=== PATIENT | female | born 1995 | race Caucasian/White ===

== ENCOUNTER 2018-04-14 09:09 | Emergency (ER) | payer MEDICAID ==
[~2018-04-14] VITALS: Ht 170.2 cm; Wt 54.5 kg
[~2018-04-14 09:09] MED LIST: ATIVAN1 MG PO; CLEOCIN HCL150 MG PO; FERROUS SULFAT325 MG PO; HALDOL5 MG PO; IBUPROFEN600 MG PO; KEFLEX500 MG PO; MOTRIN800 MG PO; PERCOCET 5-3251 TAB PO; PERCOCET 5/3251 TA1 PO; PRENATAL COMPLE1 TAB; PRENATAL COMPLE1 TAB PO; WELLBUTRIN SR150 MG PO
[2018-04-14 09:13] VITALS: Ht 170.2 cm; Wt 54.5 kg
[2018-04-14 09:48] LABS: UDS - AMPHET NEGATIVE QUAL (NEGATIVE); UDS - BARB NEGATIVE QUAL (NEGATIVE); UDS - BENZO NEGATIVE QUAL (NEGATIVE); UDS - COCAINE NEGATIVE QUAL (NEGATIVE); UDS - OPIATE NEGATIVE QUAL (NEGATIVE); UDS - PCP NEGATIVE QUAL (NEGATIVE); UDS - THC POSITIVE QUAL (NEGATIVE)
[2018-04-14 09:54] LABS: BASOPHILS 0.4 % (0-2); EOSINOPHILS 0.7 % (0-7); HEMATOCRIT 35.4 % (36.0-48.0); HEMOGLOBIN 12.2 g/dL (12-16); IMMATURE GRANULOCYTES 0.1 % (0-5); LYMPHOCYTES 26.7 % (15-50); MCH 31.9 pg (26.0-34.0); MCHC 34.5 g/dL (31.0-37.0); MCV 92.7 fL (80.0-100.0); MONOCYTES 6.5 % (2-11); NEUTROPHILS 65.6 % (40-80); RBC 3.82 10x6/uL (4.00-5.40); RDW 13.2 % (11.5-14.5); WBC 7.2 10x3/uL (4.8-10.8)
[2018-04-14 10:05] LABS: PLATELET COUNT 159 10x3/uL (130-400)
[2018-04-14 10:13] LABS: ALBUMIN 3.5 g/dL (3.4-5.0); ALKALINE PHOSPHATASE 41 U/L (46-116); ALT (SGPT) 30 U/L (10-68); CALC OSMOLALITY 281 mosm/kg (275-300); CALCIUM 8.7 mg/dL (8.5-10.1); CARBON DIOXIDE 25.9 mmol/L (21.0-32.0); CHLORIDE - SERUM 106 mmol/L (98-107); CREATININE - SERUM 0.5 mg/dL (0.6-1.3); GLUCOSE 87 mg/dL (74-106); POTASSIUM - SERUM 3.5 mmol/L (3.5-5.1); PROTEIN - SERUM 6.5 g/dL (6.4-8.2); SODIUM 141 mmol/L (136-145); UREA NITROGEN 17 mg/dL (7-18); eGFR NON AFRICAN AMERICAN > 90 mL/min (90-120)
[2018-04-14 11:08] LABS: APPEARANCE HAZY (CLEAR); BACTERIA MODERATE /hpf (NONE SEEN); BILIRUBIN NEGATIVE (NEGATIVE); COLOR STRAW (YELLOW); GLUCOSE NEGATIVE (NEGATIVE); KETONE NEGATIVE (NEGATIVE); MUCUS <1+ /lpf (NONE SEEN); NITRITE NEGATIVE (NEGATIVE); PROTEIN NEGATIVE (NEGATIVE); SPECIFIC GRAVITY 1.005 (1.005-1.020); UROBILINOGEN NORMAL (NORMAL); WHITE CELLS - URINE 0-5 /hpf (0-5)
[2018-04-14 11:47] VITALS: BP 108/81
== END 2018-04-14 11:47 | disposition left against medical advice (07) ==
LOC: D.ER 09:09
PROVIDERS: Family Medicine
DX: O26.892 Other specified pregnancy related conditions, second trimester (principal); Z3A.17 17 weeks gestation of pregnancy; R42 Dizziness and giddiness; I95.9 Hypotension, unspecified; F13.10 Sedative, hypnotic or anxiolytic abuse, uncomplicated; R55 Syncope and collapse; F17.200 Nicotine dependence, unspecified, uncomplicated

== ENCOUNTER 2018-04-20 09:47 | Emergency (ER) | payer MEDICAID ==
[~2018-04-20] VITALS: Ht 170.2 cm; Wt 54.5 kg
[2018-04-20 10:29] LABS: APPEARANCE CLEAR (CLEAR); BILIRUBIN NEGATIVE (NEGATIVE); COLOR YELLOW (YELLOW); GLUCOSE NEGATIVE (NEGATIVE); KETONE NEGATIVE (NEGATIVE); NITRITE NEGATIVE (NEGATIVE); PROTEIN NEGATIVE (NEGATIVE); UROBILINOGEN NORMAL (NORMAL)
[2018-04-20 10:30] LABS: WHITE CELLS - URINE 0-5 /hpf (0-5)
[2018-04-20 10:31] LABS: RED CELLS - URINE 0-5 /hpf (0-5)
[2018-04-20 10:34] LABS: BACTERIA FEW /hpf (NONE SEEN); MUCUS >1+ /lpf (NONE SEEN)
[2018-04-20 11:04] LABS: BASOPHILS 0.5 % (0-2); EOSINOPHILS 1.3 % (0-7); HEMOGLOBIN 12.6 g/dL (12-16); IMMATURE GRANULOCYTES 0.2 % (0-5); LYMPHOCYTES 38.7 % (15-50); MCH 31.9 pg (26.0-34.0); MCV 91.1 fL (80.0-100.0); MEAN PLATELET VOLUME 10.7 fL (7.4-10.4); MONOCYTES 9.7 % (2-11); NEUTROPHILS 49.6 % (40-80); PLATELET COUNT 182 10x3/uL (130-400); RBC 3.95 10x6/uL (4.00-5.40); RDW 12.8 % (11.5-14.5); WBC 6.4 10x3/uL (4.8-10.8)
[2018-04-20 11:37] LABS: ALBUMIN 3.5 g/dL (3.4-5.0); ALKALINE PHOSPHATASE 44 U/L (46-116); ALT (SGPT) 33 U/L (10-68); BILIRUBIN - TOTAL 0.35 mg/dL (0.2-1.3); CALC OSMOLALITY 276 mosm/kg (275-300); CALCIUM 8.9 mg/dL (8.5-10.1); CARBON DIOXIDE 26.4 mmol/L (21.0-32.0); CHLORIDE - SERUM 105 mmol/L (98-107); CREATININE - SERUM 0.5 mg/dL (0.6-1.3); GLUCOSE 88 mg/dL (74-106); POTASSIUM - SERUM 3.5 mmol/L (3.5-5.1); PROTEIN - SERUM 6.6 g/dL (6.4-8.2); SODIUM 139 mmol/L (136-145); UREA NITROGEN 13 mg/dL (7-18); eGFR NON AFRICAN AMERICAN > 90 mL/min (90-120)
[2018-04-20 11:49] LABS: HCG - QUANTITATIVE (MATERNAL) 425 mIU/mL
[2018-04-20 11:54] VITALS: BP 112/084
[2018-04-21] MEDS ORDERED: KLONOPIN0.5 MG PO (06:33)
[2018-05-20 12:57] VITALS: Ht 170.2 cm; Wt 54.5 kg
== END 2018-04-20 11:55 | disposition home or self-care (01) ==
LOC: D.ER 09:47
PROVIDERS: Family Medicine
DX: O02.1 Missed abortion (principal); F17.200 Nicotine dependence, unspecified, uncomplicated

== ENCOUNTER 2018-04-20 18:21 | Inpatient (IN) | payer MEDICAID ==
[~2018-04-20] VITALS: Ht 170.2 cm; Wt 49.9 kg
[2018-04-20 21:10] LABS: INR 1.12 (0.85-1.17)
[2018-04-20 21:18] LABS: UDS - AMPHET POSITIVE QUAL (NEGATIVE); UDS - BARB NEGATIVE QUAL (NEGATIVE); UDS - BENZO NEGATIVE QUAL (NEGATIVE); UDS - COCAINE NEGATIVE QUAL (NEGATIVE); UDS - OPIATE NEGATIVE QUAL (NEGATIVE); UDS - PCP NEGATIVE QUAL (NEGATIVE); UDS - THC POSITIVE QUAL (NEGATIVE)
[2018-04-20 22:47] VITALS: BP 95/50; BMI 17.2
[2018-04-21] MEDS ORDERED: KLONOPIN0.5 MG PO (06:33)
[2018-04-21 09:38] LABS: BASOPHILS 0.4 % (0-2); EOSINOPHILS 1.4 % (0-7); HEMATOCRIT 34.4 % (36.0-48.0); HEMOGLOBIN 11.8 g/dL (12-16); IMMATURE GRANULOCYTES 0.3 % (0-5); LYMPHOCYTES 29.5 % (15-50); MCH 31.7 pg (26.0-34.0); MCHC 34.3 g/dL (31.0-37.0); MCV 92.5 fL (80.0-100.0); MEAN PLATELET VOLUME 11.2 fL (7.4-10.4); NEUTROPHILS 62.4 % (40-80); PLATELET COUNT 175 10x3/uL (130-400); RBC 3.72 10x6/uL (4.00-5.40); WBC 7.6 10x3/uL (4.8-10.8)
[2018-05-20 12:57] VITALS: Ht 170.2 cm; Wt 49.9 kg
== END 2018-04-21 10:30 | disposition home or self-care (01) | DRG 770 ==
LOC: D.LD 18:21
PROVIDERS: Obstetrics & Gynecology
PROC: 10D17Z9 Manual Extraction of Products of Conception, Retained, Via Natural or Artificial Opening (ICD-10-PCS; principal; 2018-04-21)
DX: O02.1 Missed abortion (principal)

== ENCOUNTER 2018-06-13 21:29 | Emergency (ER) | payer MEDICAID ==
[~2018-06-13] VITALS: Ht 170.2 cm; Wt 45.4 kg
[~2018-06-13 21:29] MED LIST changes: +KLONOPIN0.5 MG PO
[2018-06-13 22:03] VITALS: Ht 170.2 cm; Wt 45.4 kg
[2018-06-13 22:35] VITALS: BP 110/74
[2018-06-13 22:48] LABS: BASOPHILS 0.4 % (0-2); EOSINOPHILS 0.2 % (0-7); HEMATOCRIT 40.8 % (36.0-48.0); HEMOGLOBIN 14.1 g/dL (12-16); IMMATURE GRANULOCYTES 0.3 % (0-5); LYMPHOCYTES 18.3 % (15-50); MCH 31.5 pg (26.0-34.0); MCHC 34.6 g/dL (31.0-37.0); MCV 91.3 fL (80.0-100.0); MEAN PLATELET VOLUME 10.9 fL (7.4-10.4); MONOCYTES 6.6 % (2-11); NEUTROPHILS 74.2 % (40-80); RBC 4.47 10x6/uL (4.00-5.40); RDW 13.1 % (11.5-14.5); WBC 13.3 10x3/uL (4.8-10.8)
[2018-06-13 22:52] LABS: PLATELET COUNT 392 10x3/uL (130-400)
[2018-06-13 22:56] LABS: HCG SERUM NEGATIVE (NEGATIVE)
[2018-06-13 23:04] LABS: APPEARANCE HAZY (CLEAR); BILIRUBIN NEGATIVE (NEGATIVE); COLOR YELLOW (YELLOW); GLUCOSE NEGATIVE (NEGATIVE); KETONE LARGE mg/dL (NEGATIVE); NITRITE NEGATIVE (NEGATIVE); PROTEIN TRACE mg/dL (NEGATIVE); SPECIFIC GRAVITY 1.025 (1.005-1.020); UROBILINOGEN NORMAL (NORMAL)
[2018-06-13 23:06] LABS: BACTERIA FEW /hpf (NONE SEEN); EPITHELIAL CELLS 0-5 /hpf (0-5); MUCUS <1+ /lpf (NONE SEEN); RED CELLS - URINE OCC /hpf (0-5); WHITE CELLS - URINE 0-5 /hpf (0-5)
[2018-06-13 23:09] LABS: CALC OSMOLALITY 287 mosm/kg (275-300); CALCIUM 9.6 mg/dL (8.5-10.1); CARBON DIOXIDE 22.9 mmol/L (21.0-32.0); CHLORIDE - SERUM 103 mmol/L (98-107); CREATININE - SERUM 0.8 mg/dL (0.6-1.3); GLUCOSE 80 mg/dL (74-106); POTASSIUM - SERUM 3.5 mmol/L (3.5-5.1); SODIUM 140 mmol/L (136-145); THYROID STIMULATING HORMONE 1.02 uIU/mL (0.36-3.74); UREA NITROGEN 40 mg/dL (7-18); eGFR NON AFRICAN AMERICAN > 90 mL/min (90-120)
[2018-06-13 23:15] LABS: UDS - AMPHET POSITIVE QUAL (NEGATIVE); UDS - BARB NEGATIVE QUAL (NEGATIVE); UDS - BENZO NEGATIVE QUAL (NEGATIVE); UDS - COCAINE NEGATIVE QUAL (NEGATIVE); UDS - OPIATE NEGATIVE QUAL (NEGATIVE); UDS - PCP NEGATIVE QUAL (NEGATIVE); UDS - THC POSITIVE QUAL (NEGATIVE)
== END 2018-06-13 22:36 | disposition left against medical advice (07) ==
LOC: D.ER 21:29
PROVIDERS: Family Medicine
DX: F15.129 Other stimulant abuse with intoxication, unspecified (principal)

== ENCOUNTER 2018-06-14 09:10 | Emergency (ER) | payer MEDICAID ==
[~2018-06-14] VITALS: Ht 170.2 cm; Wt 45.0 kg
[2018-06-14 09:15] VITALS: BP 109/70; Ht 170.2 cm; Wt 45.0 kg
== END 2018-06-14 10:10 | disposition left against medical advice (07) ==
LOC: D.ER 09:10
DX: F15.129 Other stimulant abuse with intoxication, unspecified (principal); F19.10 Other psychoactive substance abuse, uncomplicated; F17.200 Nicotine dependence, unspecified, uncomplicated

== ENCOUNTER 2018-08-03 17:23 | Emergency (ER) | payer MEDICAID ==
[~2018-08-03] VITALS: Ht 170.2 cm; Wt 45.5 kg
[2018-08-03 17:47] VITALS: Ht 170.2 cm; Wt 45.5 kg
[2018-08-03 19:44] VITALS: BP 104/60
== END 2018-08-03 19:44 | disposition home or self-care (01) ==
LOC: D.ER 17:23
DX: F15.10 Other stimulant abuse, uncomplicated (principal); F17.200 Nicotine dependence, unspecified, uncomplicated

== ENCOUNTER 2018-09-29 17:25 | Emergency (ER) | payer MEDICAID ==
[~2018-09-29] VITALS: Ht 170.2 cm; Wt 59.0 kg
[2018-09-29 17:27] VITALS: BP 129/64; Ht 170.2 cm; Wt 59.0 kg
== END 2018-09-29 19:03 | disposition left against medical advice (07) ==
LOC: D.ER 17:25
DX: G47.00 Insomnia, unspecified (principal)

== ENCOUNTER 2018-11-29 20:16 | Inpatient (IN) | payer MEDICAID ==
[~2018-11-29] VITALS: Ht 170.2 cm; Wt 57.5 kg
--- NOTE | 2018-11-29 11:53 | NUR ---
PT STATED SHE WANTED TO LEAVE AMA, CALLED [place] TO INFORM, ONCE PRESENTED WITH PAPERWORK AND INSTRUCTION PT CHANGED HER MIND STATED "I'LL WAIT UNTIL ITS MORNING "
[2018-11-29 21:20] LABS: BASOPHILS 0.4 % (0-2); EOSINOPHILS 1.1 % (0-7); HEMATOCRIT 36.4 % (36.0-48.0); HEMOGLOBIN 12.5 g/dL (12-16); IMMATURE GRANULOCYTES 0.2 % (0-5); LYMPHOCYTES 21.5 % (15-50); MCH 30.9 pg (26.0-34.0); MCHC 34.3 g/dL (31.0-37.0); MCV 89.9 fL (80.0-100.0); MEAN PLATELET VOLUME 11.3 fL (7.4-10.4); NEUTROPHILS 65.8 % (40-80); RBC 4.05 10x6/uL (4.00-5.40); RDW 13.5 % (11.5-14.5); WBC 9.4 10x3/uL (4.8-10.8)
[2018-11-29 21:21] LABS: PLATELET COUNT 243 10x3/uL (130-400)
[2018-11-29 21:31] LABS: APTT 34.4 SECONDS (22.8-39.4); INR 1.2 (0.85-1.17); PROTIME 14.7 SECONDS (11.6-15.0)
[2018-11-29 21:51] LABS: ALBUMIN 4.1 g/dL (3.4-5.0); ALKALINE PHOSPHATASE 70 U/L (46-116); ALT (SGPT) 31 U/L (10-68); CALC OSMOLALITY 282 mosm/kg (275-300); CALCIUM 9.2 mg/dL (8.5-10.1); CARBON DIOXIDE 20.2 mmol/L (21.0-32.0); CHLORIDE - SERUM 102 mmol/L (98-107); CREATININE - SERUM 0.7 mg/dL (0.6-1.3); GLUCOSE 82 mg/dL (74-106); POTASSIUM - SERUM 3.4 mmol/L (3.5-5.1); PROTEIN - SERUM 7.8 g/dL (6.4-8.2); SODIUM 141 mmol/L (136-145); UREA NITROGEN 22 mg/dL (7-18); eGFR NON AFRICAN AMERICAN > 90 mL/min (90-120)
[2018-11-29 22:12] LABS: CKMB 2.4 U/L (0.0-3.6); CREATINE KINASE 199 UL (21-215)
--- NOTE | 2018-11-29 22:15 | NUR ---
RECIEVED PT TO UNIT FOM ER STAFF.. PT VERY ANXIOUS MOVING AROUND ALOT IN BED, IV IN LEFT FA RUNNING VANC.BREATH [id number] EVEN CELLULITIS TO LFT FOOR V/S WNL CALL LIGHT IN REACH WILL CONT TO MONITOR
[2018-11-29 22:16] LABS: TROPONIN-I < 0.017 ng/mL (0.000-0.060)
--- NOTE | 2018-11-29 22:32 | NUR ---
IV INFILTRATED IN RIGHT UPPER ARM. DIRECT PRESSURE W/DRESSING APPLIED AND IV DISCONTINUED.
--- NOTE | 2018-11-29 22:35 | NUR ---
CALL DR. STONER TO ADVISED PT HAD BEEN ADMITTED AND TO SEE IF HE WANTED TO GIVE HER ANYTHING GOT ANXIETY PER OR DRUG SCREEN HE WOULD NOT BE GIVING ANY PAIN MEDS
[2018-11-29 22:36] VITALS: BP 113/61
[2018-11-29 22:42] LABS: APPEARANCE CLEAR (CLEAR); BILIRUBIN NEGATIVE (NEGATIVE); COLOR YELLOW (YELLOW); GLUCOSE NEGATIVE (NEGATIVE); HCG URINE NEGATIVE (NEGATIVE); KETONE MODERATE mg/dL (NEGATIVE); NITRITE NEGATIVE (NEGATIVE); PROTEIN TRACE mg/dL (NEGATIVE); SPECIFIC GRAVITY 1.025 (1.005-1.020); UROBILINOGEN NORMAL (NORMAL)
[2018-11-29 23:53] LABS: UDS - AMPHET POSITIVE QUAL (NEGATIVE); UDS - BARB NEGATIVE QUAL (NEGATIVE); UDS - BENZO NEGATIVE QUAL (NEGATIVE); UDS - COCAINE NEGATIVE QUAL (NEGATIVE); UDS - OPIATE NEGATIVE QUAL (NEGATIVE); UDS - PCP NEGATIVE QUAL (NEGATIVE); UDS - THC POSITIVE QUAL (NEGATIVE)
[2018-11-30 00:31] VITALS: BP 108/66
[2018-11-30 06:13] LABS: BASOPHILS 0.5 % (0-2); EOSINOPHILS 2.1 % (0-7); HEMATOCRIT 35.6 % (36.0-48.0); HEMOGLOBIN 11.9 g/dL (12-16); IMMATURE GRANULOCYTES 0.2 % (0-5); LYMPHOCYTES 23.6 % (15-50); MCH 30.1 pg (26.0-34.0); MCHC 33.4 g/dL (31.0-37.0); MCV 90.1 fL (80.0-100.0); MONOCYTES 0.5 % (2-11); NEUTROPHILS 73.1 % (40-80); PLATELET COUNT 200 10x3/uL (130-400); RBC 3.95 10x6/uL (4.00-5.40); RDW 13.4 % (11.5-14.5)
[2018-11-30 06:17] VITALS: BP 109/72
[2018-11-30 06:35] LABS: ALBUMIN 3.5 g/dL (3.4-5.0); ALKALINE PHOSPHATASE 68 U/L (46-116); ALT (SGPT) 26 U/L (10-68); BILIRUBIN - TOTAL 1.15 mg/dL (0.2-1.3); CALC OSMOLALITY 279 mosm/kg (275-300); CALCIUM 8.4 mg/dL (8.5-10.1); CARBON DIOXIDE 20.8 mmol/L (21.0-32.0); CHLORIDE - SERUM 105 mmol/L (98-107); CREATININE - SERUM 0.7 mg/dL (0.6-1.3); POTASSIUM - SERUM 3.6 mmol/L (3.5-5.1); PROTEIN - SERUM 6.9 g/dL (6.4-8.2); SODIUM 140 mmol/L (136-145); UREA NITROGEN 20 mg/dL (7-18); eGFR NON AFRICAN AMERICAN > 90 mL/min (90-120)
[2018-11-30 06:36] LABS: GLUCOSE 65 mg/dL (74-106)
[2018-11-30 06:37] LABS: WBC 4.2 10x3/uL (4.8-10.8)
--- NOTE | 2018-11-30 07:55 | NUR ---
PT LAYING IN BED WITH EYES CLOSED, RESPIRATIONS EVEN AND UNALBORED. CALL LIGHT IS IN REACH, WILL CONTINUE TO MONITOR AND FOLLOW PLAN OF CARE.
--- NOTE | 2018-11-30 08:02 | NUR ---
SPOKE WITH FARIDEH FROM [facility], PT IS COURT ORDERED TO LIVE THERE AT THIS TIME AND IF SHE TRIES TO LEAVE AMA WE ARE TO NOTIFY THEM. PT IS CURRENTLY SLEEPING, CALL LIGHT IN REACH. WILL CONTINUE TO MONITOR.
[2018-11-30 08:35] VITALS: BP 102/58
--- NOTE | 2018-11-30 09:45 | NUR ---
IV IN LEFT FA INFILTRATED, PT REFUSES TO LET ME START A NEW ONE AT THIS TIME. CALL LIGHT IN REACH, WILL CONTINUE TO MONITOR.
--- NOTE | 2018-11-30 11:05 | NUR ---
RESTING QUIETLY AT PRESENT. WILL CONTINUE WITH POC.
[2018-11-30 11:36] VITALS: BP 99/49
[2018-11-30 15:51] VITALS: BP 102/61
[2018-11-30 21:11] VITALS: BP 91/43
[2018-12-01 00:15] VITALS: BP 87/45
--- NOTE | 2018-12-01 01:55 | NUR ---
RESUMING CARE. PT LAYING IN BED EYES CLOSED IV IN LFT INFILTRATED ON RA NO C/O PAIN OR DISTRESS AT THIS TIME WILL CONT TO MONITOR
[2018-12-01 04:37] VITALS: Ht 170.2 cm; Wt 57.5 kg
[2018-12-01 05:52] VITALS: BP 91/40
[2018-12-01 05:52] LABS: BASOPHILS 0.4 % (0-2); EOSINOPHILS 2.5 % (0-7); HEMATOCRIT 34.3 % (36.0-48.0); HEMOGLOBIN 11.4 g/dL (12-16); IMMATURE GRANULOCYTES 0.2 % (0-5); LYMPHOCYTES 14.8 % (15-50); MCH 30.6 pg (26.0-34.0); MCHC 33.2 g/dL (31.0-37.0); MEAN PLATELET VOLUME 11.6 fL (7.4-10.4); NEUTROPHILS 79.1 % (40-80); PLATELET COUNT 174 10x3/uL (130-400); RBC 3.73 10x6/uL (4.00-5.40); RDW 13.6 % (11.5-14.5)
[2018-12-01 06:14] LABS: CALC OSMOLALITY 282 mosm/kg (275-300); CALCIUM 8.3 mg/dL (8.5-10.1); CARBON DIOXIDE 22.7 mmol/L (21.0-32.0); CHLORIDE - SERUM 106 mmol/L (98-107); CREATININE - SERUM 0.5 mg/dL (0.6-1.3); GLUCOSE 116 mg/dL (74-106); POTASSIUM - SERUM 3.1 mmol/L (3.5-5.1); SODIUM 141 mmol/L (136-145); UREA NITROGEN 16 mg/dL (7-18); eGFR NON AFRICAN AMERICAN > 90 mL/min (90-120)
[2018-12-01 06:16] LABS: WBC 5.6 10x3/uL (4.8-10.8)
[2018-12-01 08:13] VITALS: BP 108/49
[2018-12-01 11:33] VITALS: BP 93/45
[2018-12-01 15:37] VITALS: BP 102/59
--- NOTE | 2018-12-01 16:58 | NUR ---
PT IN BED. RESTING QUIETLY. PT HAS NO FURTHER NEEDS AT THIS TIME. BED LOW. CL IN REACH.
--- NOTE | 2018-12-01 19:30 | NUR ---
RESUMING. CARE PT LAYING IN BED A&O BREATH SOUNDS EVEN IV IN RT WRIST LR @ 125 NO C/O OF PAIN OR DISTRESS CL IN REACH WILL CONT TO MONITOR
[2018-12-01 20:00] VITALS: BP 96/48
[2018-12-02] VITALS: BP 103/57
[2018-12-02 04:00] VITALS: BP 98/48
[2018-12-02 07:22] LABS: BASOPHILS 0.8 % (0-2); EOSINOPHILS 6.7 % (0-7); HEMATOCRIT 31.4 % (36.0-48.0); HEMOGLOBIN 10.4 g/dL (12-16); MCH 30.4 pg (26.0-34.0); MCHC 33.1 g/dL (31.0-37.0); MCV 91.8 fL (80.0-100.0); MEAN PLATELET VOLUME 12.4 fL (7.4-10.4); MONOCYTES 11.9 % (2-11); NEUTROPHILS 41.6 % (40-80); PLATELET COUNT 170 10x3/uL (130-400); RBC 3.42 10x6/uL (4.00-5.40); RDW 13.8 % (11.5-14.5); WBC 4.8 10x3/uL (4.8-10.8)
[2018-12-02 07:40] LABS: CALC OSMOLALITY 285 mosm/kg (275-300); CARBON DIOXIDE 23.3 mmol/L (21.0-32.0); CHLORIDE - SERUM 110 mmol/L (98-107); CREATININE - SERUM 0.4 mg/dL (0.6-1.3); GLUCOSE 79 mg/dL (74-106); POTASSIUM - SERUM 3.1 mmol/L (3.5-5.1); SODIUM 145 mmol/L (136-145); eGFR NON AFRICAN AMERICAN > 90 mL/min (90-120)
[2018-12-02 07:42] LABS: UREA NITROGEN 6 mg/dL (7-18)
--- NOTE | 2018-12-02 07:45 | NUR ---
PT LYING IN BED, STATES SHE'S GOING BACK TO THE [place] TODAY. NO CONCERNS OR COMPLAINTS AT THIS TIME. CL IN REACH. SRX2.
[2018-12-02 09:02] VITALS: BP 110/62
[2018-12-02] MEDS ORDERED: CLEOCIN HCL300 MG PO (10:36)
--- NOTE | 2018-12-02 12:11 | EC ---
PATIENT:HIRAM BUSH DATE OF SERVICE: 11/29/18 SEX: F MEDICAL RECORD: [id number] DATE OF : [birth year] LOCATION:D.M2 D.213 AGE OF PATIENT: 23 ADMISSION DATE: 11/29/18 REFERRING PHYSICIAN: INTERPRETING PHYSICIAN: TAJ BETANCUR MD ECHOCARDIOGRAM REPORT ECHO CHARGES 4 ECHO COMPLETE Date: 11/30/18 CLINICAL DIAGNOSIS: R/O VEG ECHOCARDIOGRAPHIC MEASUREMENTS (adult normal given) AC root (d.<3.7cm) 2.8 cm LV Septum d (<1.2 cm> 1.0 cm Valve Excursion 0.8 cm LV Septum (systole) 1.1 cm Left Atria (s.<4.0cm> 2.4 cm LVPW d(<1.2cm) 0.7 cm RV (d.<2.3cm) 2.2 cm LVPW (sytole) 1.0 cm LV diastole(<5.6CM) 4.1 cm MV E-F(>70mm/sec) cm LV systole 3.2 cm LVOT Diameter 1.7 cm MV exc.(>10mm) cm Est.ejection fraction (50-75%) % DOPPLER: LVIT cm/sec A 54 cm/sec E 59 cm/sec LA cm/sec RVSP 24.3 mmHg LVOT 105 cm/sec AOP1/2T m/s Asc. Ao 122 cm/sec RVOT 52 cm/sec RA cm/sec PA 66 cm/sec AV Gradient Peak 6.0 mmHg AV Mean 3.5 mmHg AV Area 1.7 cm MV Gradient Peak 3.5 mmHg MV Mean 1.7 mmHg MV Area cm COMMENTS: Candy [employer] Mold Printer: Tay MAGAÑA Manager Supply Chain Planning: 1 Dr. Betancur TAPE# PACS Pericardial Effusion N DATE OF SERVICE: 11/30/2018 PROCEDURE: Echocardiogram. FINDINGS: 1. Left ventricular chamber size is within normal limits. Left ventricular systolic function is normal. Overall ejection fraction estimated at 60%. 2. Left atrium, right atrium and right ventricular chamber sizes are within normal limits. 3. Valvular structures have normal structure and motion. ECHOCARDIOGRAM REPORT [id number] HIRAM BUSH 4. Doppler interrogation reveals only mild tricuspid regurgitation, no other valvular insufficiency or stenosis. Pulmonary systolic pressure is estimated at 25 mmHg. 5. No evidence of pericardial effusion or left ventricular thrombus. 6. No evidence of vegetative endocarditis. TRANSINT:[id number] Voice Confirmation ID: [id number] DOCUMENT ID: [id number] TJA BETANCUR MD at 1211 CC: [id number] DICTATION DATE: 11/30/18 1608 MANAGER COSMETICS: 12/01/18 0046 ADM IN [facility] [address] [place] [address]
--- NOTE | 2018-12-02 12:35 | NUR ---
PT D/C IS DONE, CALLED [facility] TO GET PT, THEY STATED THEY DID NOT KNOW WHEN NORA WOULD BE ABLE TO COME TO AND GET HER THERE VAN IS CURRENTLY OUT. PT IS PATIENTLY SLEEPING.
--- NOTE | 2018-12-02 18:58 | MORECARE ---
CASE MANAGEMENT DISCHARGE SUMMARY PATIENT: HIRAM BUSH UNIT: [id number] ADM DATE: 11/29/18 AGE: 23 : [birth year] SEX: F ROOM/BED: D.2136 AUTHOR: ELIUD FARAH PHYSICIAN: REFERRING PHYSICIAN: DWAYNE STONER MD DATE OF SERVICE: 12/02/18 Discharge Plan Patient Name: HIRAM BUSH Facility: [facility]:[place] : 1995 Planned Disposition: Home Anticipated Discharge Date: 12/02/18 Discharge Date: 12/02/2018 Expected LOS: 3 Initial Reviewer: [email or web address] Initial Review Date: 12/02/2018 Generated: 12/02/18 7:58 pm Patient Name: HIRAM BUSH Page [id number] at 1858 All edits/amendments must be made on the electronic document DICTATION DATE: 12/02/181857 BMET: THU 12/02/181857 RPT#: [id number] DC DATE:12/02/18 STATUS: DIS IN [facility] [address] [place] [id number] END OF REPORT
--- NOTE | 2018-12-02 19:06 | MORECARE ---
CASE MANAGEMENT DISCHARGE SUMMARY PATIENT: HIRAM BUSH UNIT: [id number] ADM DATE: 11/29/18 AGE: 23 : [birth year] SEX: F ROOM/BED: D.7158 AUTHOR: SOFI,DOC PHYSICIAN: REFERRING PHYSICIAN: DWAYNE STONER MD DATE OF SERVICE: 12/02/18 Discharge Plan Patient Name: HIRAM BUSH Facility: [facility]:[place] : 1995 Planned Disposition: Home Anticipated Discharge Date: 12/02/18 Discharge Date: 12/02/2018 Expected LOS: 3 Initial Reviewer: [email or web address] Initial Review Date: 12/02/2018 Generated: 12/02/18 8:06 pm Comments DCP- Discharge Planning Updated by [email or web address]: Oral Devlin on 12/02/18 6:[address] Patient Name: HIRAM BUSH Admission Status: ER Accout number: [id number] Admission Date: 11-29-2018 : 1995 Admission Diagnosis:CELLULITIS OF LEFT LOWER LIMB Attending: DWAYNE STONER Current LOS: 3 Anticipated DC Date: 12-02-2018 Planned Disposition: Home Primary Insurance: MEDICAID [place] Discharge Planning Comments: CM MET WITH PT IN ROOM TO DISCUSS DISCHARGE PLANNING AND NEEDS. PT REPORTS LIVING AT [facility] AND WILL BE THERE FOR THE NEXT SIX MONTHS. PT REPORTS MAKING THIS ARRANGEMENT FOR HERSELF. PT HAS NO MEDICAL EQUIPMENT AND NO OUTSIDE SERVICES ASSISTING IN THE HOME. CM DISCUSSED AVAILABILITY OF HOME HEALTH, REHAB SERVICES AND MEDICAL EQUIPMENT. PT DENIES DISCHARGE NEEDS, REPORTS [facility] WILL PICK HER UP FOR DISCHARGE HOME. AIRPORT OPERATIONS COORDINATOR NURSE NOTIFIED. Solutions Consultant: Oral Devlin DCPIA - Discharge Planning Initial Assessment Updated by [email or web address]: Oral Devlin on 12/02/18 7:00 pm * Is the patient Alert and Oriented? Yes * How many steps to enter\exit or inside your home? * PCP DR. ERNESTO PRESTON - [place] * Pharmacy [facility] IN [facility]. * Preadmission Environment Care Home * Facility Name [facility] * ADLs Independent * Equipment None * Other Equipment NO MEDICAL EQUIPMENT PROVIDER PREFERNECE * List name and contact numbers for known caregivers / representatives who currently or will assist patient after discharge: SHERRI BUSH, SPOUSE, UNKNOWN PHONE NUMBER * Verbal permission to speak to the caregivers and representatives has been obtained from the patient. Yes * Community resources currently utilized Other * Please name any agencies selected above. [facility] * Additional services required to return to the preadmission environment? No * Can the patient safely return to the preadmission environment? Yes * Has this patient been hospitalized within the prior 30 days at any hospital? No Last DP export: 12/02/18 5:58 pm Patient Name: HIRAM BUSH Page [id number] at 1906 All edits/amendments must be made on the electronic document DICTATION DATE: 12/02/181905 WRAP TURNER: THU 12/02/181905 RPT#: [id number] DC DATE:12/02/18 STATUS: DIS IN [facility] [address] [place] [address] END OF REPORT
== END 2018-12-02 13:44 | disposition home or self-care (01) | DRG 603 ==
LOC: D.ER 20:16 → D.M2 21:13
PROVIDERS: Family Medicine; ADMIT Internal Medicine Nephrology
DX: L03.116 Cellulitis of left lower limb (principal); F17.213 Nicotine dependence, cigarettes, with withdrawal; F15.10 Other stimulant abuse, uncomplicated

== ENCOUNTER 2019-04-30 14:29 | Emergency (ER) | payer MEDICAID ==
[~2019-04-30] VITALS: Ht 170.2 cm; Wt 59.1 kg
[~2019-04-30 14:29] MED LIST changes: +CLEOCIN HCL300 MG PO
[2019-04-30 14:37] VITALS: BP 107/68; Ht 170.2 cm; Wt 59.1 kg
[2019-04-30] MEDS ORDERED: BACTRIM 400-801 TAB PO (15:44)
== END 2019-04-30 15:40 | disposition home or self-care (01) ==
LOC: D.ER 14:29
DX: L03.116 Cellulitis of left lower limb (principal)

== ENCOUNTER 2020-08-01 12:11 | Emergency (ER) | payer MEDICAID ==
[~2020-08-01] VITALS: Ht 170.2 cm; Wt 45.5 kg
[~2020-08-01 12:11] MED LIST changes: +BACTRIM 400-801 TAB PO
[2020-08-01 12:28] VITALS: Ht 170.2 cm; Wt 45.5 kg
[2020-08-01 13:07] LABS: HCG URINE NEGATIVE (NEGATIVE)
[2020-08-01 13:08] LABS: UDS - AMPHET POSITIVE QUAL (NEGATIVE); UDS - BARB NEGATIVE QUAL (NEGATIVE); UDS - BENZO NEGATIVE QUAL (NEGATIVE); UDS - COCAINE NEGATIVE QUAL (NEGATIVE); UDS - OPIATE NEGATIVE QUAL (NEGATIVE); UDS - PCP NEGATIVE QUAL (NEGATIVE); UDS - THC POSITIVE QUAL (NEGATIVE)
[2020-08-01 13:08] LABS: HEMATOCRIT 37.1 % (36.0-48.0); HEMOGLOBIN 12.7 g/dL (12-16); IMMATURE GRANULOCYTES 0.2 % (0-5); LYMPHOCYTES 38.3 % (15-50); MCH 31.1 pg (26.0-34.0); MCHC 34.2 g/dL (31.0-37.0); MCV 90.9 fL (80.0-100.0); MEAN PLATELET VOLUME 9.9 fL (7.4-10.4); MONOCYTES 9.4 % (2-11); NEUTROPHILS 50.1 % (40-80); RBC 4.08 10x6/uL (4.00-5.40); RDW 12.7 % (11.5-14.5); WBC 6.2 10x3/uL (4.8-10.8)
[2020-08-01 13:16] LABS: CALC OSMOLALITY 283 mosm/kg (275-300); CALCIUM 9.1 mg/dL (8.5-10.1); CARBON DIOXIDE 26.3 mmol/L (21.0-32.0); CHLORIDE - SERUM 104 mmol/L (98-107); CREATININE - SERUM 0.6 mg/dL (0.6-1.3); GLUCOSE 81 mg/dL (74-106); POTASSIUM - SERUM 3.2 mmol/L (3.5-5.1); SODIUM 141 mmol/L (136-145); UREA NITROGEN 24 mg/dL (7-18); eGFR NON AFRICAN AMERICAN > 90 mL/min (90-120)
[2020-08-01 13:19] LABS: PLATELET COUNT 312 10x3/uL (130-400)
[2020-08-01 13:21] LABS: NITRITE NEGATIVE (NEGATIVE)
[2020-08-01 13:22] LABS: ALBUMIN 3.5 g/dL (3.4-5.0); ALKALINE PHOSPHATASE 70 U/L (30-120); ALT (SGPT) 32 U/L (10-68); BILIRUBIN - TOTAL 0.64 mg/dL (0.2-1.3); MAGNESIUM - SERUM 2.1 mg/dL (1.8-2.4); PROTEIN - SERUM 7.4 g/dL (6.4-8.2)
[2020-08-01 13:22] LABS: BILIRUBIN NEGATIVE (NEGATIVE); KETONE SMALL mg/dL (NEGATIVE); UROBILINOGEN NORMAL mg/dL (< 2); WHITE CELLS - URINE RARE HPF (0-4)
[2020-08-01 13:23] LABS: BACTERIA FEW HPF (NONE SEEN); EPITHELIAL CELLS 0-5 /hpf (0-5)
[2020-08-01 13:58] LABS: CKMB 8.5 U/L (0.0-3.6); CREATINE KINASE 450 UL (21-215)
[2020-08-01 13:59] LABS: TROPONIN-I < 0.017 ng/mL (0.000-0.060)
== END 2020-08-01 16:42 | disposition home or self-care (01) ==
LOC: D.ER 12:11
PROVIDERS: Family Medicine
DX: F15.10 Other stimulant abuse, uncomplicated (principal); F19.10 Other psychoactive substance abuse, uncomplicated; F41.9 Anxiety disorder, unspecified